=== PATIENT | male | born 2000 | race Caucasian/White ===

== ENCOUNTER 2022-11-12 07:14 | Emergency (ER) | payer BC, SELFPAY ==
[2022-11-12 07:17] VITALS: BP 148/88; PULSE 80; RESP 18; TEMP 37; O2SAT 100; BMI 21.3
--- NOTE | 2022-11-12 07:26 | ED.GENADULT ---
HPI - General Adult General Time Seen by Provider: 07: Date Seen: 11/12/22 Chief complaint: Chest Pain Stated complaint: Chest and abdominal pain Time Seen by Provider: 11/12/22 07:26 Source: patient Mode of arrival: ambulatory Limitations: no limitations History of Present Illness HPI narrative: 22-year-old male who presents today with chest pain. Patient was riding his car after work had onset of left-sided abdominal pain going into the left chest. Abdominal pain resolved, still has chest pain. Pain is worse with breathing and movement. Has not taken anything for this. No shortness of breath, no cough, no nausea, vomiting, or diarrhea. No fever. Related Data Home Medications Medication Instructions Recorded Confirmed Fish oil PO 03/16/22 08/26/22 pediatric multivitamin 1 tab PO QDAY 03/16/22 08/26/22 (Flintstones Multivitamin chewable tablet) Previous Rx's Medication Instructions Recorded clindamycin 1 %-benzoyl peroxide 5 1 applic topical BID #50 grams 08/26/22 % topical gel methylphenidate HCl 10 mg tablet 10 mg PO QDAY PRN ADHD #30 tabs 08/26/22 methylphenidate HCl 36 mg 36 mg PO DAILY #30 tabs 08/26/22 tablet,extended release 24 hr methylphenidate HCl 36 mg 36 mg PO QDAY #30 tabs 08/26/22 tablet,extended release 24 hr methylphenidate HCl 36 mg 36 mg PO QDAY #30 tabs 08/26/22 tablet,extended release 24 hr methylprednisolone 4 mg tablets in See Rx Instructions PO .COMPLEX 11/12/22 a dose pack (Medrol (Kannan)) #21 ea Allergies Allergy/AdvReac Type Severity Reaction Status Date / Time ragweed pollen Allergy Mild Stuffed up Verified 08/26/22 14:18 Review of Systems Status of ROS: Reports: 10 or more systems reviewed and unremarkable except as noted in History and below [facility] Medical History (Updated 11/12/22 @ 08:23 by Varun Wan MD) Acute viral syndrome ?B34.9 - Viral infection, unspecified (ICD-10) Dehydration ?E86.0 - Dehydration (ICD-10) Headache ?R51.9 - Headache, unspecified (ICD-10) Vomiting ?R11.10 - Vomiting, unspecified (ICD-10) Social History (Updated 03/16/22 @ 16:57 by Dexter Larkin MD) Narrative: SOCIAL HISTORY: Graduated high school about a year ago. 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 No significant other. Living with family. Has a job interview with [employer]. His father works at [employer]. His father is a patient of mine named Efrain. Non sexually active. 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 He estimates working about 60 hr per week. HABITS: No alcohol tobacco or recreational drug use. FAMILY HISTORY: Adopted. Smoking Status: Never smoker Do you use any of these nicotine containing products: None How often do you have a drink containing alcohol: never AUDIT-C Alcohol total score: 0 Non-prescribed substance use: denies use Little interest or pleasure in doing things: not at all Feeling down, depressed, or hopeless: not at all Exam Narrative: Exam Narrative: General: Well-developed and well-nourished, no acute distress Head: Atraumatic and normocephalic Eyes: Pupils are equal reactive, extraocular motions intact, conjunctiva clear ENT: External nose and ears are normal, posterior pharynx without erythema or exudate Neck: No midline cervical tenderness, full spontaneous range of motion the neck, trachea midline, no adenopathy Heart: Regular rate and rhythm no murmurs or thrills Lungs: Clear to auscultation bilaterally without wheezes or crackles Chest: Tenderness along left costosternal margin and floating ribs Abdomen: Soft, nontender, nondistended with active bowel sounds Musculoskeletal: No tenderness, deformity, or edema Neurologic: Awake, alert, and oriented x3, no gross focal neurologic deficits, cranial nerves intact as tested Psych: Mood and affect are appropriate Skin: No rashes Const: Vital Signs, click to edit/add: Vital Signs - 24 hr 11/12/22 07:17 Temperature 98.6 F Pulse Rate [Right Pulse Oximeter] 80 Respiratory Rate 18 Blood Pressure [Ri ght Upper Arm] 148/88 H Pulse Oximetry 100 Oxygen Delivery Me thod Room Air Course Course Hospital Course: Patient seen examined, prior records reviewed. Differential diagnosis includes but not limited to musculoskeletal pain, rib fracture, hemothorax, pneumothorax, pneumonia, pulmonary embolism, acute coronary syndrome, pericarditis, myocarditis, esophagitis, gastroesophageal reflux. Patient presents with chest pain. Says he it is shooting pain from the left lower quadrant up into the chest, now only the chest. No abdominal pain or tenderness on exam, he has marked tenderness of these left sternal costal border and cartilaginous ribs. Consider CT PE protocol but Low risk by well's consider area and PERC negative. Symptoms are most consistent with chest wall pain. EKG is reassuring, troponin chest x-ray ordered. Toradol ordered for pain. Reevaluation(s) Reevaluation #1: Chest x-ray independently interpreted by me is negative. Patient feels better after Toradol and stable for discharge. Time: 08:23 Vital Signs Vital signs: Initial Vital Signs Temperature 98.6 F 11/12/22 07:17 Temperature Source Temporal Artery Scan 11/12/22 07:17 Pulse Rate 80 11/12/22 07:17 Respiratory Rate 18 11/12/22 07:17 Blood Pressure 148/88 H 11/12/22 07:17 Blood Pressure Mean 108 11/12/22 07:17 Blood Pressure Position Sitting 11/12/22 07:17 Pulse Oximetry 100 11/12/22 07:17 Oxygen Delivery Method Room Air 11/12/22 07:17 Vital Signs Temperature 98.6 F 11/12/22 07:17 Pulse Rate 80 11/12/22 07:17 Respiratory Rate 18 11/12/22 07:17 Blood Pressure 148/88 H 11/12/22 07:17 Pulse Oximetry 100 11/12/22 07:17 Oxygen Delivery Method Room Air 11/12/22 07:17 Temperature 98.6 F 11/12/22 07:17 Pulse Rate 80 11/12/22 07:17 Respiratory Rate 18 11/12/22 07:17 Blood Pressure 148/88 H 11/12/22 07:17 Pulse Oximetry 100 11/12/22 07:17 Oxygen Delivery Method Room Air 11/12/22 07:17 Medical Decision Making Medical Records Medical records reviewed: Yes I reviewed the patient's medical records Lab Data Lab results reviewed: Yes I reviewed the patient's lab results Labs: Lab Results 11/12/22 Range/Units 07:44 POC Troponin I 0.00 L (0.01-0.04) ng/ml ECG Data Attestation: I personally reviewed and interpreted this ECG as follows: Prior ECG tracings: not available for review Interpretation: Performed at 7:24 a.m. independently interpreted by me demonstrates sinus rhythm rate 74, right ventricular conduction delay, normal axis, ND 148, QTC 435. No prior for comparison. Discharge Plan Discharge Clinical Impression: Acute costochondritis Patient Disposition: Home, Self-Care Condition: Improved Instructions: Costochondritis (DC) Additional Instructions: Take Tylenol or ibuprofen as needed for pain. Ice for comfort of 15-20 minutes at a time every 2-3 hours while awake. Activity as tolerated. Activity Level: Activity as Tolerated Prescriptions: New methylprednisolone [Medrol (Kannan)] 4 mg tablets,dose pack See Rx Instructions .ROUTE .COMPLEX Qty: 21 0RF Rx Instructions: orally per package directions No Action Flintstones Multivitamin Tablet,Chewable 1 tab PO QDAY Fish oil PO methylphenidate HCl 36 mg tablet extended release 24hr 36 mg PO QDAY Qty: 30 0RF methylphenidate HCl 36 mg tablet extended release 24hr 36 mg PO QDAY Qty: 30 0RF methylphenidate HCl 36 mg tablet extended release 24hr 36 mg PO DAILY Qty: 30 0RF methylphenidate HCl 10 mg tablet 10 mg PO QDAY PRN (Reason: ADHD) Qty: 30 0RF Rx Instructions: take late in day as needed in addition to 36mg XR dose clindamycin-benzoyl peroxide 1-5 % gel 1 applic topical BID Qty: 50 3RF Follow Up/Referrals: Dexter Larkin MD [Primary Care Provider] - Stand Alone Forms: Blurr Info Instructions
--- NOTE | 2022-11-12 07:44 | CRLHL7_ITS ---
For Patients: As a result of the Century Cures Act, medical imaging exams and procedure reports are released immediately into your electronic medical record. You may view this report before your referring provider. If you have questions, please contact your health care provider. INDICATION: Chest pain. TECHNIQUE: Chest 2 views. COMPARISON: June 24, 2016. FINDINGS: Cardiovascular and mediastinum: Heart size and vasculature are normal in caliber and appearance. Lungs and pleural spaces: Lungs are clear. No sign of infiltrate. No sign of pleural effusion. No pneumothorax. Bones and soft tissues: No significant findings. IMPRESSION: No acute or significant findings. Dictated by Christiano Nolan MD @ 11/12/2022 8:30:10 AM (Electronically Signed)
[2022-11-12] MEDS: KETOROLAC 30 MG/ML inj IM (08:06)
== END 2022-11-12 08:32 | disposition home or self-care (01) ==
PROVIDERS: Emergency Provider Family Medicine; PCP Family Medicine
DX: M94.0 Chondrocostal junction syndrome [Tietze] (principal)
CPT/HCPCS: 71046; 84484; 93005; 96372; 99284; 99285; J1885

== ENCOUNTER 2025-05-14 14:45 | Outpatient (CLI) | payer BC, SELFPAY | END 2025-05-14 14:46 | disposition home or self-care (01) | LOC: NFLDREF 05-20 20:13 | PROVIDERS: PCP Family Medicine; Referring Provider Family Medicine; Visit Provider Family Medicine | DX: Z00.00 Encounter for general adult medical examination without abnormal findings (principal); Z13.6 Encounter for screening for cardiovascular disorders | CPT/HCPCS: 80061; 82947 ==